=== PATIENT | female | born 1955 | race Caucasian/White ===

== ENCOUNTER → 2018-11-25 | Outpatient (CLI) | payer MEDICARE ==
[2018-11-25 09:41] LABS: ALANINE AMINOTRANSFERASE 35 U/L (9-52); ALBUMIN 3.7 g/dL (3.5-5.0); ALKALINE PHOSPHATASE 100 U/L (38-126); ANION GAP 6 (5-19); ASPARTATE AMINO TRANSFERASE 37 U/L (14-36); BILIRUBIN,DIRECT 0.2 mg/dL (0.0-0.4); BILIRUBIN,TOTAL 0.4 mg/dL (0.2-1.3); BLOOD UREA NITROGEN 16 mg/dL (7-20); CALCIUM 9.5 mg/dL (8.4-10.2); CARBON DIOXIDE 30 mmol/L (22-30); CHLORIDE 106 mmol/L (98-107); CHOLESTEROL 199.32 mg/dL (0-200); GLUCOSE 98 mg/dL (75-110); POTASSIUM 4.6 mmol/L (3.6-5.0); SODIUM 142.1 mmol/L (137-145); TOTAL PROTEIN 6.9 g/dL (6.3-8.2); TRIGLYCERIDES 106 mg/dL (<150)
[2018-11-25 09:52] LABS: DIRECT LDL 116 mg/dL (<100)
== END ==
LOC: OD 08:30
PROVIDERS: ATTEND Family Medicine
DX: Z13.1 Encounter for screening for diabetes mellitus (principal); Z13.220 Encounter for screening for lipoid disorders
CPT/HCPCS: 36415; 80053; 80061

== ENCOUNTER 2018-12-01 14:56 | Emergency (ER) | payer MEDICARE ==
--- NOTE | 2018-12-01 17:18 | ER Document Report ---
ED Medical Screen (RME) - General Chief Complaint: Insect Bite Stated Complaint: INFECTED BAG PIT Time Seen by Provider: 12/01/18 16:57 Primary Care Provider: LISA KIMBROUGH MD [Primary Care Provider] - Follow up as needed Notes: 63-year-old female presented to ED for complaint of bug bite a week and a half ago just above the right eyebrow. She states she went to her PCP started on doxycycline with no improvement. She states she then went back to her PCP today who stated that she needed to come to the emergency room for a CAT scan to rule out orbital cellulitis. Patient states that Dr. Kimbrough spoke with Dr. Mata who agreed that patient would need a CT of the orbit. I had Dr. Mata come and look at the patient. She requested that a CBC BMP CT of the orbit with IV contrast visual acuity all be ordered as well as the eye box. These orders were all placed and the patient will be moved to [address] [place] [address] Mata to examined the patient. I have greeted and performed a rapid initial assessment of this patient. A comprehensive ED assessment and evaluation of the patient, analysis of test results and completion of medical decision making process will be conducted by an additional ED providers. TRAVEL OUTSIDE OF THE [place] IN LAST 30 DAYS: No - Related Data Allergies/Adverse Reactions: clindamycin Allergy (Verified 12/01/18 15:03) lisinopril Allergy (Verified 12/01/18 15:03) Physical Exam - Vital signs Vitals: Temp Pulse Resp BP Pulse Ox 98.6 F 88 16 139/69 H 96 12/01/18 15:06 12/01/18 15:06 12/01/18 15:06 12/01/18 15:06 12/01/18 15:06 Course - Vital Signs Vital signs: Temp Pulse Resp BP Pulse Ox 98.6 F 88 16 139/69 H 96 12/01/18 15:06 12/01/18 15:06 12/01/18 15:06 12/01/18 15:06 12/01/18 15:06 Doctor's Discharge - Discharge Referrals: LISA KIMBROUGH MD [Primary Care Provider] - Follow up as needed
[2018-12-01] MEDS ORDERED: TETRACAINE HCL 0.5% OPH SOLN 4 ML OD ONE (17:33)
--- NOTE | 2018-12-01 17:33 | ER Document Report ---
ED General - General Chief Complaint: Insect Bite Stated Complaint: INFECTED BAG PIT Time Seen by Provider: 12/01/18 16:57 Primary Care Provider: LISA KIMBROUGH MD [Primary Care Provider] - Follow up as needed TRAVEL OUTSIDE OF THE [place] IN LAST 30 DAYS: No - HPI Notes: 63-year-old female presented to ED for complaint of bug bite a week and a half ago just above the right eyebrow. She states she went to her PCP started on doxycycline with no improvement. She states she then went back to her PCP today who stated that she needed to come to the emergency room for a CT scan to rule out orbital cellulitis. Patient has been on doxycycline for the last 5 days. She reports chills but denies any fevers. She does state that she has some pain when she moves her right eye. She states the lesion has become larger since initially seeing her primary care doctor. She does not remember seeing a bug bite her in the eye. She denies wearing contact lenses. She denies vision changes. Past Medical History: Reviewed in chart Past Surgical History: Reviewed in chart Social History: Denies tobacco and alcohol use Family History: Reviewed and noncontributory for presenting illness Allergies: Reviewed, see documented allergy list. REVIEW OF SYSTEMS: CONSTITUTIONAL : No fever No chills No diaphoresis No recent illness EENT: No vision changes No congestion No sore throat Right eye pain CARDIOVASCULAR: No chest pain No palpitations RESPIRATORY: No shortness of breath No cough No difficulty breathing GASTROINTESTINAL: No abdominal pain No nausea No vomiting No diarrhea GENITOURINARY: No dysuria No hematuria No difficulty urinating MUSCULOSKELETAL: No back pain No leg pain No arm pain SKIN: Facial rashe Facial lesion LYMPHATIC: No swollen, enlarged glands. NEUROLOGICAL: No lightheadedness No headache No weakness No paresthesias PSYCHIATRIC: No anxiety No depression PHYSICAL EXAMINATION: Vital signs reviewed, nursing noted reviewed. GENERAL: Well-appearing, well-nourished and in no acute distress. HEAD: Atraumatic, normocephalic. EYES: Mild bilateral conjunctival injection. PERRLA. Pain with ocular movement but external ocular motor intact. No ptosis. Mild right periorbital erythema and edema. Tenderness to palpation of right periorbital region. Crusting tube 0.0 cm x 1.0 cm rash above right eyebrow with no bleeding or drainage ENT: nares patent, oropharynx clear without exudates. Moist mucous membranes. NECK: Normal range of motion, supple without lymphadenopathy LUNGS: Breath sounds clear to auscultation bilaterally and equal. No wheezes rales or rhonchi. HEART: Regular rate and rhythm without murmurs ABDOMEN: Soft, nontender, normoactive bowel sounds. No rebound, guarding, or rigidity. No masses appreciated. EXTREMITIES: Nontender, good range of motion, no pitting or edema. NEUROLOGICAL: No focal neurological deficits. Moves all extremities spontaneously Motor and sensory grossly intact on exam. PSYCH: Normal mood, normal affect. SKIN: Warm, Dry, normal turgor. See eye exam above - Related Data Allergies/Adverse Reactions: clindamycin Allergy (Verified 12/01/18 15:03) lisinopril Allergy (Verified 12/01/18 15:03) Past Medical History - Social History Smoking Status: Never Smoker Family History: Reviewed & Not Pertinent Physical Exam - Vital signs Vitals: Temp Pulse Resp BP Pulse Ox 98.6 F 88 16 139/69 H 96 12/01/18 15:06 12/01/18 15:06 12/01/18 15:06 12/01/18 15:06 12/01/18 15:06 Course - Re-evaluation Re-evalutation: 12/01/18 17:32 Vitals reviewed. Nursing notes reviewed. Patient is afebrile and nontoxic in appearance. She does have pain with ocular movement and some mild periorbital erythema. CT scan will be obtained to evaluate for a post septal cellulitis 12/01/18 19:51 Patient's lab work is unremarkable. Visual acuity is normal. Laboratory 12/01/18 12/01/18 17:55 17:55 WBC 10.0 RBC 5.12 Hgb 15.7 H Hct 43.9 MCV 86 MCH 30.7 MCHC 35.8 RDW 12.9 Plt Count 272 Total Counted 100 Seg Neutrophils % Not Reportable Seg Neuts % (Manual) 41 L Band Neutrophils % 2 L Lymphocytes % Not Reportable Lymphocytes % (Manual) 49 H Monocytes % Not Reportable Monocytes % (Manual) 8 Eosinophils % Not Reportable Eosinophils % (Manual) 0 Basophils % Not Reportable Basophils % (Manual) 0 Absolute Neutrophils Not Reportable Abs Neuts (Manual) 4.3 Absolute Lymphocytes Not Reportable Abs Lymphs (Manual) 4.9 H Absolute Monocytes Not Reportable Abs Monocytes (Manual) 0.8 Absolute Eosinophils Not Reportable Absolute Eos (Manual) 0.0 Absolute Basophils Not Reportable Abs Basophils (Manual) 0.0 Toxic Vacuolation PRESENT Large Platelets PRESENT Platelet Comment ADEQUATE Poikilocytosis SLIGHT Tear Drop Cells SLIGHT Sodium 141.1 Potassium 3.7 Chloride 103 Carbon Dioxide 28 Anion Gap 10 BUN 22 H Creatinine 0.75 Est GFR ( Amer) > 60 Est GFR (Non-Af Amer) > 60 Glucose [address] 12/01/18 17:10 IMPRESSION: Mild frontal subcutaneous-periorbital edema. No fluid collection or abnormal enhancement. Symmetric intact globes and retroorbital soft tissues. CT scan shows some periorbital edema consistent with her preseptal cellulitis. There is no orbital or post septal cellulitis. Patient has some mild diffuse fluorescein uptake consistent with a keratitis. She will be given erythromycin ophthalmic ointment. Patient was referred to ophthalmology and advised to try and see them in the next 1-2 days. She will be started on Bactrim and Keflex since she is feeling doxycycline as an outpatient. Patient was counseled on returning to the emergency room if her symptoms are worsening despite new antibiotic treatment. She will follow with her primary care doctor if symptoms are improving in the next 1-2 days for close reevaluation. She is stable at time of discharge. - Vital Signs Vital signs: Temp Pulse Resp BP Pulse Ox 98.6 F 88 16 139/69 H 96 12/01/18 15:06 12/01/18 15:06 12/01/18 15:06 12/01/18 15:06 12/01/18 15:06 - Laboratory Result Diagrams: 12/01/18 17:55 12/01/18 17:55 Laboratory results interpreted by me: 12/01/18 12/01/18 17:55 17:55 Hgb 15.7 H Seg Neuts % (Manual) 41 L Band Neutrophils % 2 L Lymphocytes % (Manual) 49 H Abs Lymphs (Manual) 4.9 H BUN 22 H Discharge - Discharge Clinical Impression: Preseptal cellulitis Condition: Stable Disposition: HOME, SELF-CARE Instructions: Cellulitis ([facility]) Additional Instructions: Please return to the emergency department if you have any worsening, or concern of your symptoms. Please return to the emergency department if you develop chest pain, difficulty breathing, severe abdominal pain, or ongoing vomiting. Please follow-up with your primary care physician in 2-3 days and any other recommended physicians. If prescribed, take all medications as directed. If you have any questions or concerns do not hesitate to return the emergency department for evaluation. Prescriptions: Cephalexin Monohydrate [Keflex 500 mg Capsule] 500 mg PO Q6H 7 Days capsule Sulfamethoxazole/Trimethoprim [Bactrim Ds Tablet] 1 each PO BID #14 tablet Referrals: LISA KIMBROUGH MD [Primary Care Provider] - Follow up in 3-5 days HELDER GONGORA MD [ACTIVE STAFF] - Follow up tomorrow
[2018-12-01 18:10] LABS: HEMATOCRIT 43.9 % (36.0-47.0); HEMOGLOBIN 15.7 g/dL (12.0-15.5); MEAN CORPUSCULAR HEMOGLOBIN 30.7 pg (27.0-33.4); MEAN CORPUSCULAR HGB CONC 35.8 g/dL (32.0-36.0); MEAN CORPUSCULAR VOLUME 86 fl (80-97); PLATELET COUNT 272 10^3/uL (150-450); RED BLOOD COUNT 5.12 10^6/uL (3.72-5.28); RED CELL DISTRIBUTION WIDTH 12.9 % (11.5-14.0)
[2018-12-01 18:24] LABS: ANION GAP 10 (5-19); BLOOD UREA NITROGEN 22 mg/dL (7-20); CALCIUM 9.5 mg/dL (8.4-10.2); CARBON DIOXIDE 28 mmol/L (22-30); CHLORIDE 103 mmol/L (98-107); GLUCOSE 95 mg/dL (75-110); POTASSIUM 3.7 mmol/L (3.6-5.0); SODIUM 141.1 mmol/L (137-145)
[2018-12-01 18:31] LABS: ABSOLUTE LYMPHOCYTES# (MANUAL) 4.9 10^3/uL (0.5-4.7); ABSOLUTE MONOCYTES # (MANUAL) 0.8 10^3/uL (0.1-1.4); ABSOLUTE NEUTROPHILS# (MANUAL) 4.3 10^3/uL (1.7-8.2); BAND NEUTROPHILS % (MANUAL) 2 % (3-5); BASOPHILS % (MANUAL) 0 % (0-2); EOSINOPHILS % (MANUAL) 0 % (0-6); LYMPHOCYTES % (MANUAL) 49 % (13-45); MONOCYTES % (MANUAL) 8 % (3-13); SEGMENTED NEUTROPHILS % (MAN) 41 % (42-78); TOTAL CELLS COUNTED 100
[2018-12-01 18:33] LABS: PLATELET COMMENT ADEQUATE; PLATELET LARGE PRESENT; POIKILOCYTOSIS SLIGHT; TEAR DROP CELLS SLIGHT; TOXIC VACUOLATION PRESENT
--- NOTE | 2018-12-01 19:20 | RADIOLOGY REPORT (SQ) ---
EXAM DESCRIPTION: CT ORBIT/SELLA WITH COMPLETED DATE/TIME: 12/01/2018 7:06 pm REASON FOR STUDY: pain in orbit with cellulitis to face COMPARISON: None. TECHNIQUE: Post contrast images through the orbits windowed for bone and soft tissue. Additional co rebecca and sagittal reconstructed images reviewed. All images stored on PACS. All CT scanners at this facility use dose modulation, iterative reconstruction, and/or weight based d osing when appropriate to reduce radiation dose to as low as reasonably achievable (ALARA). [facility]: Dose Right [facility]: CareDose [facility]: Dose Right [facility]: Teradose 4D [facility]: [employer] CONTRAST TYPE AND DOSE: contrast/concentration: Isovue 350.00 mg/ml; Total Contrast Delivered: 50.0 ml; Total Saline Delivered: 50.0 ml RENAL FUNCTION: GFR > 60. RADIATION DOSE: CT Rad equipment meets quality standard of care and radiation dose reduction techniq ues were employed. CTDIvol: 30.4 mGy. DLP: 374 mGy-cm. . LIMITATIONS: None. FINDINGS: FACIAL BONES: No fracture or bone lesion. ORBITS: Intact. No fracture. Symmetric intact globes and retroorbital soft tissues. PARANASAL SINUSES: Clear. No significant mucosal thickening, mass or fluid. SOFT TISSUES: Mild frontal subcutaneous-periorbital edema. No fluid collection or abnormal enhanceme nt. No CT evidence of acute sinusitis. INFERIOR BRAIN: Limited view. No acute findings. OTHER: No other significant finding. IMPRESSION: Mild frontal subcutaneous-periorbital edema. No fluid collection or abnormal enhancemen t. Symmetric intact globes and retroorbital soft tissues. TECHNICAL DOCUMENTATION: JOB ID: [id number] [id number] Quality ID # [id number]: Final reports with documentation of one or more dose reduction techniques (e.g., Au tomated exposure control, adjustment of the mA and/or kV according to patient size, use of iterative reconstruction technique) 2010 [employer]- All Rights Reserved Reading location - IP/workstation name: [email or web address]
[2018-12-01] MEDS ORDERED: CEPHALEXIN 500 MG CAPSULE PO ONE (19:47)
[2018-12-01] MEDS ORDERED: SULFAMETHOXAZOLE/TRIMETHOPRIM 800-160 MG TABLET PO ONE (19:47)
[2018-12-01] MEDS ORDERED: ERYTHROMYCIN 0.5% OPH OINT 1 GM UNIT DOSE OD ONE (19:47)
[2018-12-01 20:49] VITALS: BP 134/46
== END 2018-12-01 20:15 | disposition home or self-care (01) ==
LOC: ER 14:56
DX: L03.213 Periorbital cellulitis (principal); Z88.3 Allergy status to other anti-infective agents
CPT/HCPCS: 99283; 36415; 85025; 80048; 70481; A9270 ×2; J3490

== ENCOUNTER → 2019-08-13 | Outpatient (CLI) | payer MEDICARE ==
--- NOTE | 2019-08-13 11:20 | WOMENS IMAGING REPORT ---
EXAM DESCRIPTION: 3D SCREENING MAMMO BILAT COMPLETED DATE/TIME: 08/13/2019 10:44 am REASON FOR STUDY: Z12.31 SCREENING MAMMO Z12.31 ENCNTR SCREEN MAMMOGRAM FOR MALIGNANT NEOPLASM OF B RE COMPARISON: None. EXAM PARAMETERS: Views: Standard craniocaudal and mediolateral oblique views of each breast recorded using digital acquisition and breast tomosynthesis. Read with the assistance of CAD. .FORMER[facility] - [employer] Version 9.2 LIMITATIONS: None. FINDINGS: No suspicious masses, suspicious calcifications or architectural distortion. No areas of c oncern. IMPRESSION: NEGATIVE MAMMOGRAM. BIRADS 1. BREAST DENSITY: b. There are scattered areas of fibroglandular density. BIRAD: ASSESSMENT: 1 NEGATIVE RECOMMENDATION: ROUTINE SCREENING COMMENT: The patient has been notified of the results by letter per MQSA requirements. Additional no tification policies are in place for contacting patient with suspicious or incomplete findings. Quality ID #225: The [employer] recommends an annual screening mammogram for women aged 40 years or over. This facility utilizes a reminder system to ensure that all patients receive reminder letters, and/or direct phone calls for appointments. This includes reminders for routine scr eening mammograms, diagnostic mammograms, or other Breast Imaging Interventions when appropriate. Th is patient will be placed in the appropriate reminder system. TECHNICAL DOCUMENTATION: FINDING NUMBER: (1) ASSESSMENT: (1) JOB ID: [id number] [employer]- All Rights Reserved Reading location - IP/workstation name: [email or web address]
== END ==
LOC: WI 10:10
PROVIDERS: ATTEND Family Medicine
DX: Z12.31 Encounter for screening mammogram for malignant neoplasm of breast (principal)
CPT/HCPCS: 77063; 77067

== ENCOUNTER → 2020-05-03 | Outpatient (CLI) | payer MEDICARE ==
--- NOTE | 2020-05-03 11:11 | WOMENS IMAGING REPORT ---
EXAM DESCRIPTION: U/S BREAST UNILAT LIMITED IMAGES COMPLETED DATE/TIME: 05/03/2020 10:43 am REASON FOR STUDY: RT BREAST LUMP I06.1 RHEUMATIC AORTIC INSUFFICIENCY N63.0 UNSPECIFIED LUMP IN UN SPECIFIED BREAST COMPARISON: 08/13/2019 EXAM PARAMETERS: Standard craniocaudal and mediolateral oblique views of each breast recorded using digital acquisition and breast tomosynthesis. True lateral and cone compression views right breast. Read with the assistance of CAD: .FORMERLY [facility] - [employer] Version 9.2 LIMITATIONS: None. FINDINGS: RIGHT BREAST MASSES: No suspicious masses. CALCIFICATIONS: No new or suspicious calcifications. ARCHITECTURAL DISTORTION: None. ASYMMETRY: None noted. OTHER: No other significant findings. LEFT BREAST MASSES: No suspicious masses. CALCIFICATIONS: No new or suspicious calcifications. ARCHITECTURAL DISTORTION: None. ASYMMETRY: None noted. OTHER: No other significant finding. Ultrasound of the right breast was normal. IMPRESSION: No evidence of malignancy. BREAST DENSITY: b. There are scattered areas of fibroglandular density. BIRAD: ASSESSMENT: 1 Negative. RECOMMENDATION: RECOMMENDED FOLLOW UP: Birads 1 or 2: No breast imaging finding to explain the patie nt's presenting complaint. Further intervention should be based on the degree of clinical suspicion. SPECIFIC INTERVENTION/IMAGING/CONSULTATION RECOMMENDED:No additional intervention/ imaging/consultati on needed at this time. COMMUNICATION:The imaging findings were not discussed with the patient. Her referring provider has be en notified of the findings. COMMENT: The patient has been notified of the results by letter per SA requirements. Additional no tification policies are in place for contacting patient with suspicious or incomplete findings. Quality ID #225: The [employer] recommends an annual screening mammogram for women aged 40 years or over. This facility utilizes a reminder system to ensure that all patients receive reminder letters, and/or direct phone calls for appointments. This includes reminders for routine scr eening mammograms, diagnostic mammograms, or other Breast Imaging Interventions when appropriate. Th is patient will be placed in the appropriate reminder system. TECHNICAL DOCUMENTATION: FINDING NUMBER: (1) ASSESSMENT: (1) JOB ID: [id number] 2010 [employer]- All Rights Reserved Reading location - IP/workstation name: [email or web address]
--- NOTE | 2020-05-03 11:33 | WOMENS IMAGING REPORT ---
EXAM DESCRIPTION: 3D DX MAMMO BILAT COMPLETE DATE/TIME: 05/03/2020 11:26 am REASON FOR STUDY: N63.0 UNSPECIFIED LUMP IN UNSPECIFIED BREAST I06.1 RHEUMATIC AORTIC INSUFFICIENCY N63.0 UNSPECIFIED LUMP IN UNSPECIFIED BREAST FINDINGS: Please see combined report for performance of procedure and radiologic supervision and int erpretation. IMPRESSION: Please see combined report for performance of procedure and radiologic supervision and i nterpretation. Reading location - IP/workstation name: [email or web address]
--- NOTE | 2020-05-04 21:12 | XCELERA REPORT ---
[address] [address] Transthoracic Echocardiogram Report Name: DARIN NUNEZ Age: 64 yrs Gender: Female : 1955 Patient Status: Outpatient Patient Location: RAD Study Date: 05/03/2020 09:09 AM Height: 63 in Weight: 200 lb BSA: 1.9 m2 Procedure: A two-dimensional transthoracic echocardiogram with color flow and Doppler was performed. Study Quality: Good. Reason For Study: AV REGURGITATION History: AV REGURGITATION. Ordering Physician: LISA KIMBROUGH Performed By: Kal Chahal Interpretation Summary The left ventricle is normal in size. There is normal left ventricular wall thickness. LV EF is 70% Left ventricular systolic function is normal. Doppler measurements suggest impaired left ventricular relaxation, which is associated with grade I/IV or mild diastolic dysfunction : By tissue dopplers. The left ventricular wall motion is normal. There is no thrombus. No ASD , VSD , or PFO seen. The right ventricle is normal in size and function. The right atrium is normal. The left atrial size is normal. There is no evidence of mitral valve prolapse. There is no vegetation seen on the mitral valve. There is no mitral valve stenosis. There is a trace to mild amount of mitral regurgitation There is no aortic valvular vegetation. There is mild aortic stenosis There is a peak gradient of of 20.8 mm of Hg , and a mean gradient of 12.7 mm of Hg. There is a moderate amount of aortic regurgitation There is no tricuspid stenosis. There is a mild amount of tricuspid regurgitation Upper normal RVSP to mild Pulmonary hypertension.RVSP is 28 to 33 mm of Hg , with RA mean of 5 to 10. There is no pulmonic valvular stenosis. There is a trace amount of pulmonic regurgitation The aortic root is normal size. The inferior vena cava appeared normal and decreased > 50% with respiration (RAP 5-10 mmHg) There is no pericardial effusion. MMode/2D Measurements & Calculations RVDd: 2.7 cm LVIDd: 5.5 cm FS: 41.1 % Ao root diam: 2.6 cm IVSd: 0.78 cm LVIDs: 3.2 cm EDV(Teich): 146.6 ml Ao root area: 5.1 cm2 LVPWd: 0.79 cm ESV(Teich): 42.0 ml LA dimension: 3.2 cm EF(Teich): 71.4 % LVOT diam: 1.9 cm LVOT area: 2.8 cm2 Doppler Measurements & Calculations MV E max jovan: MV P1/2t max jovan: Ao V2 max: AI max jovan: 89.6 cm/sec 95.6 cm/sec 228.0 cm/sec 447.4 cm/sec MV A max jovan: MV P1/2t: 77.2 msec Ao max PG: AI max P.8 cm/sec MVA(P1/2t): 2.8 cm2 20.8 mmHg 80.1 mmHg MV E/A: 0.98 MV dec slope: Ao V2 mean: AI dec slope: 164.6 cm/sec 221.2 cm/sec2 362.6 cm/sec2 Ao mean PG: AI P1/2t: MV dec time: 12.7 mmHg 592.5 msec 0.32 sec Ao V2 VTI: 63.2 cm KEITH(I,D): 1.5 cm2 KEITH(V,D): 1.6 cm2 LV V1 max PG: SV(LVOT): 94.1 ml PA V2 max: PI end-d jovan: 6.8 mmHg 63.7 cm/sec 63.8 cm/sec LV V1 mean PG: PA max P.0 mmHg 1.6 mmHg LV V1 max: 129.9 cm/sec LV V1 mean: 83.7 cm/sec LV V1 VTI: 33.3 cm LV dP/dt: 909.0 mmHg/s TR max jovan: AV P1/2t-pr_phl: MV P1/2t-pr_phl: 239.5 cm/sec 592.5 msec 77.2 msec TR max P.9 mmHg Left Ventricle The left ventricle is normal in size. There is normal left ventricular wall thickness. LV EF is 70%. Left ventricular systolic function is normal. Doppler measurements suggest impaired left ventricular relaxation, which is associated with grade I/IV or mild diastolic dysfunction. : By tissue dopplers. The left ventricular wall motion is normal. There is no thrombus. No ASD , VSD , or PFO seen. Right Ventricle The right ventricle is normal in size and function. Atria The right atrium is normal. The left atrial size is normal. Mitral Valve There is no evidence of mitral valve prolapse. There is no vegetation seen on the mitral valve. There is no mitral valve stenosis. There is a trace to mild amount of mitral regurgitation. Aortic Valve There is no aortic valvular vegetation. There is mild aortic stenosis. There is a peak gradient of of 20.8 mm of Hg , and a mean gradient of 12.7 mm of Hg. There is a moderate amount of aortic regurgitation. Tricuspid Valve There is no tricuspid stenosis. There is a mild amount of tricuspid regurgitation. Upper normal RVSP to mild Pulmonary hypertension.RVSP is 28 to 33 mm of Hg , with RA mean of 5 to 10. Pulmonic Valve There is no pulmonic valvular stenosis. There is a trace amount of pulmonic regurgitation. Great Vessels The aortic root is normal size. The inferior vena cava appeared normal and decreased > 50% with respiration (RAP 5-10 mmHg). Effusions There is no pericardial effusion. : LISA KMIBROUGH Lakshmi
== END ==
LOC: RAD 08:40
PROVIDERS: ATTEND Family Medicine
DX: R92.2 Inconclusive mammogram (principal); I06.1 Rheumatic aortic insufficiency
CPT/HCPCS: 93306; 76642; 77066; G0279; 77062